=== PATIENT | female | born 1975 | race Caucasian/White ===

== ENCOUNTER → 2017-02-10 | Outpatient (CLI) | payer BC ==
--- NOTE | 2017-02-16 14:17 | MM ---
Reason for exam: screening (asymptomatic). Last mammogram was performed 6 years and 2 months ago. History: Patient is nulliparous. Took hormonal contraceptives for 10 years beginning at age 16. Physical Findings: A clinical breast exam by your physician is recommended on an annual basis and results should be correlated with mammographic findings. MG Screening Mammo w CAD Bilateral CC and MLO view(s) were taken. Prior study comparison: December 17, 2010, bilateral digital screening mammo w/CAD. The breast tissue is heterogeneously dense. This may lower the sensitivity of mammography. No significant changes when compared with prior studies. ASSESSMENT: Benign, BI-RAD 2 RECOMMENDATION: Routine screening mammogram of both breasts in 1 year.
== END | disposition home or self-care (01) ==
LOC: RADMAMWWP 10:05
PROVIDERS: ATTEND Family Medicine
DX: Z12.31 Encounter for screening mammogram for malignant neoplasm of breast (principal)

== ENCOUNTER → 2018-10-23 | Outpatient (CLI) | payer BC ==
--- NOTE | 2018-10-25 10:41 | MM ---
Reason for exam: screening (asymptomatic). Last mammogram was performed 1 year and 8 months ago. History: Patient is nulliparous. Took hormonal contraceptives for 10 years beginning at age 16. Physical Findings: A clinical breast exam by your physician is recommended on an annual basis and results should be correlated with mammographic findings. MG Screening Mammo w CAD Bilateral CC and MLO view(s) were taken. Prior study comparison: February 11, 2017, bilateral MG screening mammo w CAD. December 17, 2010, bilateral digital screening mammo w/CAD. The breast tissue is heterogeneously dense. This may lower the sensitivity of mammography. No significant changes when compared with prior studies. ASSESSMENT: Benign, BI-RAD 2 RECOMMENDATION: Routine screening mammogram of both breasts in 1 year.
== END | disposition home or self-care (01) ==
LOC: RADMAMWWP 13:46
PROVIDERS: ATTEND Family Medicine
DX: Z12.31 Encounter for screening mammogram for malignant neoplasm of breast (principal)
CPT/HCPCS: 77067

== ENCOUNTER → 2022-12-07 | Outpatient (CLI) | payer BC ==
--- NOTE | 2022-12-08 12:29 | MM ---
Reason for Exam: Screening (asymptomatic). Last mammogram was performed 4 year(s) and 1 month(s) ago. Patient History: Menarche at age 11. Patient has no children. Hormonal Contraceptives for 10 years from age 16 until age 26. Last menstrual period: 11/18/2022 Risk Values: Alpa 5 year model risk: 1.0%. NCI Lifetime model risk: 10.0%. Prior Study Comparison: 12/17/2010 Bilateral Screening Mammogram, [facility]. 02/11/2017 Bilateral Screening Mammogram, [facility]. 10/23/2018 Bilateral Screening Mammogram, [facility]. Tissue Density: The breast tissue is heterogeneously dense. This may lower the sensitivity of mammography. Findings: Analyzed By CAD. There is no suspicious group of microcalcifications or new suspicious mass. Overall Assessment: Negative, BI-RAD 1 Management: Screening Mammogram of both breasts in [address] [facility] will attempt to contact patient to return for supplemental views and ultrasound if indicated. Patient should continue monthly self-breast exams. A clinical breast exam by your physician is recommended on an annual basis. This exam should not preclude additional follow-up of suspicious palpable abnormalities. Note on Alpa scores and lifetime risk: 1. A Alpa score greater than 3% is considered moderate risk. If this is the case, consider specialist referral to assess eligibility for a risk reducing agent. 2. If overall lifetime risk for the development of breast cancer is 20% or higher, the patient may qualify for future screening with alternating mammogram and breast MRI. Electronically signed and approved by: Jose A Sheikh DO
== END | disposition home or self-care (01) ==
LOC: RADMAMWWP 10:31
PROVIDERS: ATTEND Family Medicine
DX: Z12.31 Encounter for screening mammogram for malignant neoplasm of breast (principal)
CPT/HCPCS: 77067

== ENCOUNTER 2023-10-30 09:06 | Emergency (ER) | payer OTHER, BC ==
[2023-10-30] MEDS: KETOROLAC 15 MG/ML 1 ML VIAL IVP STA ×2 (09:21→14:26)
[2023-10-30] MEDS: HYDROmorphone 1 MG/ML 1 ML SYRINGE IVP STA ×2 (09:23→10:19)
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
[2023-10-30] MEDS ORDERED: BUPIVACAINE (PF) 0.5% 30 ML VIAL SQ STA (10:41)
[2023-10-30] MEDS ORDERED: BUPIVACAINE (PF) 0.25% 10 ML VIAL SQ STA (10:55)
[2023-10-30] MEDS: LIDOCAINE 1% INJ 10MG/ML (20 ML MDV) SQ ONE (11:09)
[2023-10-30] MEDS: BUPIVACAINE (PF) 0.25% 30 ML VIAL SQ STA (11:10)
[2023-10-30] MEDS: PROPOFOL 10 MG/ML 20 ML VIAL IV ONE ×2 (13:45→14:20)
[2023-10-30] MEDS: HYDROmorphone 0.5 MG/0.5 ML SYRINGE IVP STA (14:26)
--- NOTE | 2023-10-30 14:42 | XR ---
EXAMINATION TYPE: XR wrist complete 2 views RT DATE OF EXAM: 10/30/2023 COMPARISON: Forearm earlier today HISTORY: 48-year-old female postreduction exam FINDINGS: Gross interval reduction of the comminuted fracture distal radial metaphysis and epiphysis. Residual minimal 2 mm of dorsal displacement and slight residual dorsal angulation. Comminution extends into b oth the radiocarpal and distal radioulnar joints. Some possible bony debris versus TFCC calcification s intervals at the ulnocarpal joint. Bony irregularity and cystic change along the proximal ulnar asp ect of the lunate bone. Mild degenerative change first CMC and triscaphe joints. Soft tissue swelling . IMPRESSION: 1. Gross interval reduction of the comminuted distal radial metaphyseal and epiphyseal fracture. Resi dual minimal 2 mm of dorsal displacement and slight residual dorsal angulation. 2. Comminution with intra-articular extension into both the radiocarpal and distal radial ulnar joint s. 3. 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
[2023-10-30 15:58] VITALS: BP 128/82; PULSE 78; RESP 20; TEMP 98
== END 2023-10-30 15:58 | disposition home or self-care (01) ==
LOC: EC 09:06
DX: V89.2XXA Person injured in unspecified motor-vehicle accident, traffic, initial encounter
CPT/HCPCS: 25605; 96374; 96375; 96376; 99152; 99285